=== PATIENT | male | born 2000 | race Two or more races ===

== ENCOUNTER 2024-04-01 19:16 | Inpatient (IN) | payer MEDICAID ==
[2024-04-01 20:00] VITALS: BP 131/89; TEMP 98.5; TEMP 98.8; O2SAT 97; O2SAT 99
[2024-04-01] MEDS ORDERED: ZOLPIDEM TARTRATE 5 MG TABLET PO PRN (20:00)
[2024-04-01] MEDS ORDERED: MAGNESIUM HYDROXIDE 30 ML UDC PO PRN (20:00)
[2024-04-01] MEDS ORDERED: Z GUARD REMEDY 4 OZ OINT TP PRN (20:00)
[2024-04-01] MEDS ORDERED: MAG HYDROX/AL HYDROX/SIMETH 30 ML UDC PO PRN (20:00)
[2024-04-01] MEDS ORDERED: ONDANSETRON HCL/PF 4 MG/2 ML VIAL IVP PRN (20:00)
[2024-04-01] MEDS: IV NS 0.9% 1,000 ML IV PRN (22:07)
[2024-04-01] MEDS: ENOXAPARIN SODIUM 40 MG/0.4 ML DISP.SYRIN SQ SCH (22:14)
[2024-04-01] MEDS: KETOROLAC TROMETHAMINE 15 MG/ML VIAL IV PRN (23:23)
[2024-04-02 06:54] LABS: BASOPHILS % (AUTO) 0.2 % (0.0-2.0); EOSINOPHILS # (AUTO) 0.1 K/uL (0.0-0.7); EOSINOPHILS % (AUTO) 1.4 % (0.0-6.0); HEMATOCRIT 41 % (39-51); HEMOGLOBIN 13.8 g/dL (13.5-17.5); LYMPHOCYTES # (AUTO) 1.8 K/uL (0.8-4.8); LYMPHOCYTES % (AUTO) 18.2 % (20.0-44.0); MEAN CORPUSCULAR HEMOGLOBIN 27 PG (26.0-33.0); MEAN CORPUSCULAR HGB CONC 33 g/dl (31.0-36.0); MEAN CORPUSCULAR VOLUME 81 fL (80-96); MONOCYTES # (AUTO) 0.7 K/uL (0.1-1.30); MONOCYTES % (AUTO) 6.5 % (2.0-12.0); NEUTROPHILS # (AUTO) 7.5 K/uL (1.8-8.9); NEUTROPHILS % (AUTO) 73.7 % (43.0-81.0); PLATELET COUNT (AUTO) 148 K/uL (150-450); RED BLOOD CELL COUNT(AUTO) 5.11 MIL/uL (4.5-6.0); RED CELL DISTRIBUTION WIDTH 13.8 % (11.5-15.0); WHITE BLOOD COUNT (AUTO) 10.1 K/uL (4.3-11.0)
[2024-04-02 07:00] VITALS: BP 135/86; TEMP 99.3; O2SAT 97
[2024-04-02 07:11] LABS: INR 1.08 (0.91-1.10); PARTIAL THROMBOPLASTIN TIME 32.4 SEC (24.3-34.3); PROTHROMBIN TIME 11.4 SECS (9.2-11.1)
[2024-04-02 07:21] LABS: ALBUMIN 2.5 g/dL (3.4-5.0); BILIRUBIN,DIRECT 0.2 mg/dL (0.0-0.2); BILIRUBIN,TOTAL 0.9 mg/dL (0.2-1.0); CALCIUM, SERUM 7.8 mg/dL (8.5-10.1); CREATININE 0.6 mg/dL (0.6-1.3); PHOSPHORUS 2.6 mg/dL (2.5-4.9); POTASSIUM 3.3 mmol/L (3.5-5.1); TOTAL PROTEIN, SERUM 6.3 g/dL (6.4-8.2)
[2024-04-02 08:20] VITALS: BP 132/84; TEMP 99; O2SAT 97
[2024-04-02] MEDS: PANTOPRAZOLE 40 MG VIAL IV SCH (08:21)
[2024-04-02] MEDS: CEFTRIAXONE 1 G in IV D5W 50 ML IV SCH (08:22)
[2024-04-02] MEDS: POTASSIUM CHLORIDE 20 MEQ TAB.PRT.SR PO ONE (09:59)
[2024-04-02] MEDS ORDERED: DEXTROSE 50%-WATER 50 ML DISP.SYRIN IV PRN (10:00)
[2024-04-02] MEDS ORDERED: LORAZEPAM 1 MG TABLET PO PRN (10:00)
[2024-04-02] MEDS: BLOOD SUGAR DIAGNOSTIC 1 EACH STRIP IN SCH (11:43)
[2024-04-02] MEDS: INSULIN REGULAR, HUMAN 100 UNIT/ML 3 ML VIAL SQ PRN (11:44)
[2024-04-02] MEDS: ACETAMINOPHEN 325 MG TABLET PO PRN (12:16)
[2024-04-02 16:00] VITALS: BP 131/84; TEMP 98.4; O2SAT 99
[2024-04-02] MEDS: IV NS 0.9% 1,000 ML IV PRN (17:58)
[2024-04-02] MEDS: MORPHINE SULFATE INJ 2 MG/ML DISP.SYRIN IV PRN (19:45)
[2024-04-02 20:00] VITALS: BP 132/84; TEMP 99; O2SAT 99
[2024-04-03 07:42] LABS: CALCIUM, SERUM 8.5 mg/dL (8.5-10.1); CREATININE 0.5 mg/dL (0.6-1.3); POTASSIUM 3.4 mmol/L (3.5-5.1)
[2024-04-03 07:46] LABS: BASOPHILS % (AUTO) 0.2 % (0.0-2.0); EOSINOPHILS # (AUTO) 0.2 K/uL (0.0-0.7); EOSINOPHILS % (AUTO) 1.6 % (0.0-6.0); HEMATOCRIT 42 % (39-51); HEMOGLOBIN 13.9 g/dL (13.5-17.5); LYMPHOCYTES # (AUTO) 1.8 K/uL (0.8-4.8); LYMPHOCYTES % (AUTO) 16.6 % (20.0-44.0); MEAN CORPUSCULAR HEMOGLOBIN 27 PG (26.0-33.0); MEAN CORPUSCULAR HGB CONC 33 g/dl (31.0-36.0); MEAN CORPUSCULAR VOLUME 82 fL (80-96); MONOCYTES # (AUTO) 0.7 K/uL (0.1-1.30); MONOCYTES % (AUTO) 6.4 % (2.0-12.0); NEUTROPHILS % (AUTO) 75.2 % (43.0-81.0); PLATELET COUNT (AUTO) 172 K/uL (150-450); RED BLOOD CELL COUNT(AUTO) 5.16 MIL/uL (4.5-6.0); RED CELL DISTRIBUTION WIDTH 13.8 % (11.5-15.0); WHITE BLOOD COUNT (AUTO) 10.6 K/uL (4.3-11.0)
[2024-04-03 08:00] VITALS: BP 144/87; TEMP 98.6; O2SAT 99
[2024-04-03] MEDS ORDERED: ATOR20TA PO (08:17)
[2024-04-03] MEDS ORDERED: PANT40TA2 PO (08:18)
[2024-04-03] MEDS ORDERED: HYDR-3972 PO (08:18)
[2024-04-03] MEDS: POTASSIUM CHLORIDE 20 MEQ TAB.PRT.SR PO ONE (08:37)
[2024-04-03] MEDS: PANTOPRAZOLE 40 MG TABLET.DR PO SCH (08:38)
== END 2024-04-03 14:15 | disposition home or self-care (01) | DRG 282 ==
LOC: MED 19:16
PROVIDERS: ADMIT Nurse Practitioner Family; ATTEND Nurse Practitioner Acute Care
DX: K85.90 Acute pancreatitis without necrosis or infection, unspecified (principal); N39.0 Urinary tract infection, site not specified; E87.1 Hypo-osmolality and hyponatremia; E66.3 Overweight; B96.89 Other specified bacterial agents as the cause of diseases classified elsewhere; E11.65 Type 2 diabetes mellitus with hyperglycemia; E87.6 Hypokalemia; E86.1 Hypovolemia; Z91.199 Patient's noncompliance with other medical treatment and regimen due to unspecified reason; R74.01 Elevation of levels of liver transaminase levels
CPT/HCPCS: 36415; 80048-TC; 80061-TC; 80076-TC; 82150-TC; 82962-TC; 83690-TC; 83735-TC; 84100-TC; 85025-TC; 85730-TC; A4223; G0378; J0696; J1650; J1815; J1885; J2270; J2470; J7030; J7060